=== PATIENT | female | born 2000 | race Hispanic/Latino ===

== ENCOUNTER 2021-05-17 12:07 | Emergency (ER) | payer OTHER ==
[~2021-05-17] VITALS: Ht 157.5 cm; Wt 52.2 kg
[2021-05-17 12:09] VITALS: BP 121/71
[2021-05-17 14:19] VITALS: BP 118/70
== END 2021-05-17 14:49 | disposition home or self-care (01) ==
LOC: EDH 12:07
DX: U07.1 COVID-19 (principal)
CPT/HCPCS: 99281